=== PATIENT | female | born 1950 | race Caucasian/White ===

== ENCOUNTER 2016-10-01 13:27 | Outpatient (CLI) | payer MEDICARE, BC ==
[2014-08-12 11:21] VITALS: BMI 17.5
[~2016-10-01 13:27] MED LIST: ADVIL200 MG PO; MINIVELLE1 EAC1 TRANSDERM
== END 2016-10-01 14:23 ==
LOC: D.MAMMO 13:27
DX: Z12.31 Encounter for screening mammogram for malignant neoplasm of breast (principal)

== ENCOUNTER → 2017-10-20 16:51 | Outpatient (CLI) | payer MEDICARE, BC ==
[2014-08-12 11:21] VITALS: BMI 17.5
== END | disposition home or self-care (01) ==
LOC: D.MRI 16:51
DX: M25.512 Pain in left shoulder (principal)